=== PATIENT | male | born 1950 | race Caucasian/White ===

== ENCOUNTER 2019-05-10 15:30 | Observation (INO) | payer OTHER, MEDICARE ==
[2019-05-10] MEDS ORDERED: methylPREDNISolone 125 MG* 2 ML VIAL IV ONE ×2 (15:46→18:36)
[2019-05-10] MEDS ORDERED: Magnesium Sulfate 2 GM IV* 2 GM/50 ML BAG IV ONE (15:46)
[2019-05-10] MEDS ORDERED: Albuterol/Ipratropium NEB.SOL* Albuterol 2.5 MG/Ipratropium 0.5 MG 3 ML INH ONE ×3 (15:46→20:20)
[2019-05-10] MEDS ORDERED: predniSONE TAB* 20 MG PO ONE (16:03)
[2019-05-10 16:20] LABS: ABS Basophils 0.1 10^3/ul (0-0.2); ABS Eosinophils 0.4 10^3/ul (0-0.6); ABS Monocytes 0.7 10^3/ul (0-0.8); ABS Neutrophils 7.8 10^3/ul (1.5-7.7); Eosinophil % 3.4 %; Hematocrit 48 % (42-52); Hemoglobin 16.3 g/dL (14.0-18.0); Lymphocyte % 18.5 %; Mean Corpuscular HGB Conc 34 g/dL (31-36); Mean Corpuscular Hemoglobin 31 pg (27-31); Mean Corpuscular Volume 92 fL (80-94); Mean Platelet Volume 7.9 fL (7.4-10.4); Platelet Count 312 10^3/uL (150-450); Red Blood Count 5.22 10^6 /uL (4.18-5.48); Red Cell Distribution Width 15 % (10-15)
[2019-05-10 16:37] LABS: ALT 22 U/L (7-52); AST 26 U/L (13-39); Albumin 4.8 g/dL (3.2-5.2); Albumin/Globulin Ratio 1.6 (1-3); Alkaline Phosphatase 77 U/L (34-104); Anion Gap 10 mmol/L (2-11); Blood Urea Nitrogen 19 mg/dL (6-24); C Reactive Protein < 1.00 mg/L (<8.01); CO2 Carbon Dioxide 26 mmol/L (22-32); Calcium 9.9 mg/dL (8.6-10.3); Chloride 98 mmol/L (101-111); EGFR African American 78.9 (>60); EGFR Non-African American 65.2 (>60); Glucose 112 mg/dL (70-100); Magnesium 1.9 mg/dL (1.9-2.7); Sodium 134 mmol/L (135-145); Total Protein 7.8 g/dL (6.4-8.9); Troponin I 0.03 ng/mL (<0.04)
--- NOTE | 2019-05-10 16:38 | ED ---
Shortness of Breath - HPI Summary HPI Summary: 68-year-old male presents with shortness breath for the past week. He states that he has been wheezing more and more. He states that using an inhaler and almost ran out of it this week. He admits to cough and shortness breath. No chest pain. No abdominal pain. No nausea vomiting. No fevers. No sinus congestion. He states that his asthma has never been this bad. Does smoke. no one around him is sick. states he is allergic to cats and has a cat and started the heat this week so things the dander started his asthma. - History of Current Complaint Chief Complaint: EDShortnessOfBreath Time Seen by Provider: 05/10/19 15:43 - Allergy/Home Medications Allergies/Adverse Reactions: Allergies Allergy/AdvReac Type Severity Reaction Status Date / Time No Known Allergies Allergy Verified 08/29/12 08:10 Home Medications: Home Medications Albuterol HFA INHALER* [Ventolin HFA Inhaler*] 2 puff INH Q6H PRN 05/10/19 [ History Confirmed 05/10/19] PMH/Surg Hx/FS Hx/Imm Hx Endocrine/Hematology History: Denies: Hx Anticoagulant Therapy Cardiovascular History: Denies: Other Cardiovascular Problems/Disorders Respiratory History: Reports: Hx Asthma Denies: Hx Chronic Obstructive Pulmonary Disease (COPD) Sensory History: Reports: Hx Cataracts, Hx Contacts or Glasses - GLASSES Denies: Hx Hearing Aid Opthamlomology History: Reports: Hx Cataracts, Hx Contacts or Glasses - GLASSES Neurological History: Denies: Other Neuro Impairments/Disorders - Surgical History Surgery Procedure, Year, and Place: 06/2011, CATARACT RIGHT EYE AND. 07/2110, DETACHED RIGHT EYE, [place]. 08/2010, [facility] Hx Anesthesia Reactions: No - Immunization History Immunizations Up to Date: Unable to Obtain/Confirm Infectious Disease History: No Infectious Disease History: Denies: Traveled Outside the [place] in Last 30 Days - Family History Known Family History: Positive: Non-Contributory - Social History Alcohol Use: None Substance Use Type: Reports: Marijuana Substance Use Comment - Amount & Last Used: occasional Smoking Status (MU): Heavy Every Day Tobacco Smoker Review of Systems Negative: Fever Negative: Chest Pain Positive: Shortness Of Breath, Cough Negative: Abdominal Pain All Other Systems Reviewed And Are Negative: Yes Physical Exam Triage Information Reviewed: Yes Vital Signs On Initial Exam: Initial Vitals Temp Pulse Resp BP Pulse Ox 97.5 F 93 28 190/111 92 05/10/19 15:31 05/10/19 15:31 05/10/19 15:31 05/10/19 15:31 05/10/19 15:31 Vital Signs Reviewed: Yes Appearance: Positive: Well-Appearing Skin: Positive: Warm, Dry Head/Face: Positive: Normal Head/Face Inspection Eyes: Positive: Normal, EOMI, TAMI, Conjunctiva Clear ENT: Positive: Pharynx normal Respiratory/Lung Sounds: Positive: Breath Sounds Present, Wheezes Cardiovascular: Positive: Normal, RRR Abdomen Description: Positive: Nontender, Soft Bowel Sounds: Positive: Present Musculoskeletal: Positive: Normal Neurological: Positive: Normal Psychiatric: Positive: Normal Procedures - Sedation Patient Received Moderate/Deep Sedation with Procedure: No Diagnostics - Vital Signs Vital Signs Temp Pulse Resp BP Pulse Ox 05/10/19 16:10 90 19 95 05/10/19 15:31 97.5 F 93 28 190/111 92 - Laboratory Lab Results: Lab Results 05/10/19 05/10/19 Range/Units 16:06 16:06 WBC 11.0 H (3.5-10.8) 10^3/uL RBC 5.22 (4.18-5.48) 10^6 /uL Hgb 16.3 (14.0-18.0) g/dL Hct 48 (42-52) % MCV 92 (80-94) fL MCH 31 (27-31) pg MCHC 34 (31-36) g/dL RDW 15 (10-15) % Plt Count 312 (150-450) 10^3/uL MPV 7.9 (7.4-10.4) fL Neut % (Auto) 70.8 % Lymph % (Auto) 18.5 % [place] % (Auto) 6.2 % Eos % (Auto) 3.4 % Baso % (Auto) 1.1 % Absolute Neuts (auto) 7.8 H (1.5-7.7) 10^3/ul Absolute Lymphs (auto) 2.0 (1.0-4.8) 10^3/ul Absolute Monos (auto) 0.7 (0-0.8) 10^3/ul Absolute Eos (auto) 0.4 (0-0.6) 10^3/ul Absolute Basos (auto) 0.1 (0-0.2) 10^3/ul Absolute Nucleated RBC 0.0 10^3/ul Nucleated RBC % 0.0 Sodium 134 L (135-145) mmol/L Potassium 4.0 (3.5-5.0) mmol/L Chloride 98 L (101-111) mmol/L Carbon Dioxide 26 (22-32) mmol/L Anion Gap 10 (2-11) mmol/L BUN 19 (6-24) mg/dL Creatinine 1.12 (0.67-1.17) mg/dL Est GFR ( Amer) 78.9 (>60) Est GFR (Non-Af Amer) 65.2 (>60) BUN/Creatinine Ratio 17.0 (8-20) Glucose 112 H (70-100) mg/dL Calcium 9.9 (8.6-10.3) mg/dL Magnesium 1.9 (1.9-2.7) mg/dL Total Bilirubin 0.80 (0.2-1.0) mg/dL AST 26 (13-39) U/L ALT 22 (7-52) U/L Alkaline Phosphatase 77 (34-104) U/L Troponin I 0.03 (<0.04) ng/mL C-Reactive Protein < 1.00 (<8.01) mg/L Total Protein 7.8 (6.4-8.9) g/dL Albumin 4.8 (3.2-5.2) g/dL Globulin 3.0 (2-4) g/dL Albumin/Globulin Ratio 1.6 (1-3) Result Diagrams: 05/10/19 16:06 05/10/19 16:06 Lab Statement: Any lab studies that have been ordered have been reviewed, and results considered in the medical decision making process. - Radiology chest Radiology Interpretation Completed By: Radiologist Summary of Radiographic Findings: IMPRESSION: No active cardiopulmonary disease is noted. - EKG No standard instances Cardiac Rate: NL EKG Rhythm: Sinus Rhythm Summary of EKG Findings: sinus rhythm Re-Evaluation - Re-Evaluation First Eval Re-Evaluation Time: 16:53 Change: Improved Comment: still wheezing, does not want an IV still, will try continous neb Second Eval Comment: convinced to do IV Third Eval Re-Evaluation Time: 19:54 Change: Improved Comment: still wheezing, wants to go home, will do one more breathing treatment Fourth Eval Re-Evaluation Time: 20:42 Comment: patient attempted to ambulate and was unable to do so Course/Dx - Course Course Of Treatment: 68-year-old male presents with shortness breath for the past week. He states that he has been wheezing more and more. He states that using an inhaler and almost ran out of it this week. He admits to cough and shortness breath. No chest pain. No abdominal pain. No nausea vomiting. No fevers. No sinus congestion. He states that his asthma has never been this bad. Does smoke. On exam diffuse wheezing noted. Chest x-ray normal. White blood count normal. CRP normal. BNP and troponin normal. EKG shows sinus rhythm. Gave breathing treatment with minimal improvement. Patient initially declined IV so gave oral steroids with no improvement. He then finally agreed to IV and gave mag and solu medol with some improvements continues to wheeze and require oxygen. Patient states he does not want to be admitted. Advised that should be as patient continues to wheeze. patient was attempted to ambulate and was unable to do so. discussed case with dr palomo who agrees to admit. - Diagnoses Differential Diagnosis/HQI/PQRI: Positive: Asthma, CHF, Pneumonia Provider Diagnoses: Asthma, Shortness of breath - Critical Care Time Critical Care Time: 30-74 min - 50 mins Discharge ED - Sign-Out/Discharge Documenting (check all that apply): Patient Departure - Discharge Plan Condition: Stable Disposition: ADMITTED TO [facility] - Billing Disposition and Condition Condition: STABLE Disposition: Admitted to [facility]
[2019-05-10] MEDS ORDERED: Albuterol 0.5% CONC NEB.SOL* 5 MG/ML 20 ml BOT INH ONE ×2 (16:54→17:44)
[2019-05-10] MEDS ORDERED: Magnesium Sulfate 2 GM IV* 2 GM/50 ML BAG IVPB ONE (18:36)
[2019-05-10] MEDS ORDERED: Albuterol 2.5 MG/3 ML NEB.SOL* (0.083%) INH ONE (19:54)
[2019-05-10] MEDS ORDERED: Albuterol/Ipratropium NEB.SOL* Albuterol 2.5 MG/Ipratropium 0.5 MG 3 ML INH PRN (23:25)
[2019-05-10] MEDS ORDERED: NS 0.9% 1000 ML** 1,000 ML IV SCH (23:30)
[2019-05-10] MEDS ORDERED: Azithromycin 500 mg/250 ml NS 500 MG/250 ML BAG IVPB SCH (23:45)
--- NOTE | 2019-05-11 01:16 | HP ---
CC: Dr. Toro Cade * ADMISSION HISTORY AND PHYSICAL: DATE OF ADMISSION: 05/10/19 PRIMARY CARE PHYSICIAN: Toro Cade MD CHIEF COMPLAINT: Shortness of breath. HISTORY OF PRESENT ILLNESS: This is a 68-year-old gentleman with no significant past medical history, followed up by Dr. Toro Cade about 4 months ago for blood work and was told that he does not have any medical problems including diabetes, hypertension, dyslipidemia. He was noted to have some previous history of obstructive pulmonary disease and was given some p.r.n. albuterol ever since he got a cat, which he states he is allergic to and normally he uses his albuterol as needed; however, for the last 1 week, he has been having severe shortness of breath and more and more wheezing with the albuterol not being sufficient to cure. He also been having cough, which is productive of clear, medium thickness of sputum. No fever or chills. 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 That along with the fact that he is allergic to cat might have triggered his symptoms. He otherwise denies any other abdominal pain, nausea, vomiting, diarrhea, any fever, chills, any numbness, tingling, weakness, any vision disturbance. PAST MEDICAL HISTORY: He does have a history of alcohol abuse, has been abstinent for many years, especially since 1982, but has had a few relapses in between, last relapse was roughly 7 years ago. He also has a history of prostate problem but only takes herbal medications, does not want to take any chemicals. History of chronic smoking with obstructive lung disease, which he attributes to allergies to his cat. PAST SURGICAL HISTORY: He has had multiple surgeries in both eyes including cataract extraction with subsequent repair of detached retina and removal of the lens, which had flipped and reinsertion of a new lens on the right eye and since then, he has had oddly shaped pupil, especially on his right eye, which is a different size than his left eye. He has also had double inguinal hernia repairs in 2010. HOME MEDICATIONS: The patient's only home medication is Ventolin 2 puffs by inhalation every 6 hours as needed. ALLERGIES: No known drug allergies, but the patient does state that he is allergic to his cat. FAMILY HISTORY: The patient was adopted but he did track down his parents and states that both his parents lived to be very long, but otherwise he does not know any significant medical problems that they might have had. 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 He is an active smoker, he smokes about a half a pack per day and states that he has quit smoking as of today and as mentioned, he has a previous history of alcoholism, has been abstinent with since 1982 with a few relapses in between, last relapse was 7 years ago. He lives with his son, Lyndon, , who is his healthcare proxy and he is otherwise full code. REVIEW OF SYSTEMS: A 14-point review of systems did not reveal any new information other than the ones in the HPI. PHYSICAL EXAMINATION GENERAL: The patient is awake, alert, and oriented x3, did not appear to be in any acute respiratory distress. VITAL SIGNS: In the ER, temperature documented at 97.5, BP was 127/78, heart rate 102, respiration rate 18, saturating 96% on 2 L nasal cannula. HEAD AND NECK: Atraumatic, normocephalic. Bilateral pupils are reactive, but unequal as mentioned. Neck: Supple. No jugular venous distention. LUNGS: The patient had bilateral diffuse wheezing. HEART: S1, S2. Irregular, tachycardia. ABDOMEN: Soft, nontender, nondistended. EXTREMITIES: No cyanosis, clubbing, or edema. DIAGNOSTIC STUDIES/LAB DATA: CBC shows minimally elevated white count of 11.0 , hemoglobin, hematocrit, and platelets were stable. Comprehensive metabolic panel shows some mild hyponatremia with sodium of 134, potassium, bicarb, BUN, and creatinine were all within normal limits. Lactic acid minimally elevated at 2.3. Glucose was noted to be 112. LFTs with normal limits. Troponin was 0.01. Chest x-ray, no active cardiopulmonary disease noted. EKG shows sinus rhythm at 87 beats per minute without any ST elevation. IMPRESSION: This is a 68-year-old gentleman with no significant past medical history other than smoking and alcohol abuse. He comes in with respiratory distress likely secondary to COPD exacerbation. ASSESSMENT AND PLAN: 1. Hypoxic respiratory failure secondary to chronic obstructive pulmonary disease exacerbation. We will start the patient on steroids, azithromycin, and DuoNeb both scheduled and p.r.n. along with continuous pulse oximetry monitoring. 2. Lactic acidosis likely secondary to dehydration. We will start the patient on gentle hydration and repeat lactic acid level in the morning. 3. DVT prophylaxis with sequential compression device. 4. Code status. Full code with sonLyndon being healthcare proxy. [id number]/[facility] #: [id number] NORM
[2019-05-11] MEDS: Albuterol/Ipratropium NEB.SOL* Albuterol 2.5 MG/Ipratropium 0.5 MG 3 ML INH SCH ×2 (02:21→08:08)
[2019-05-11 06:44] LABS: ABS Lymphocytes 1.1 10^3/ul (1.0-4.8); ABS Monocytes 0.5 10^3/ul (0-0.8); ABS Neutrophils 10.3 10^3/ul (1.5-7.7); Hematocrit 46 % (42-52); Hemoglobin 15.2 g/dL (14.0-18.0); Lymphocyte % 8.9 %; Mean Corpuscular HGB Conc 33 g/dL (31-36); Mean Corpuscular Hemoglobin 30 pg (27-31); Mean Corpuscular Volume 92 fL (80-94); Mean Platelet Volume 7.8 fL (7.4-10.4); Nucleated Red Blood Cells % 0.2; Platelet Count 296 10^3/uL (150-450); Red Blood Count 5.01 10^6 /uL (4.18-5.48); Red Cell Distribution Width 15 % (10-15)
[2019-05-11 07:09] LABS: BUN/Creatinine Ratio 20.8 (8-20); Calcium 9.5 mg/dL (8.6-10.3); EGFR African American 84.1 (>60); EGFR Non-African American 69.5 (>60); Potassium 4.9 mmol/L (3.5-5.0)
[2019-05-11] MEDS ORDERED: methylPREDNISolone SOD 40 MG* 1 ML VIAL IV SCH (07:30)
[2019-05-11] MEDS ORDERED: Acetaminophen TAB* 325 MG PO PRN (09:00)
[2019-05-11] MEDS ORDERED: Nicotine* 2MG (FRUIT FLAVOR) GUM PO PRN (10:16)
--- NOTE | 2019-05-11 10:22 | PN ---
Subjective Date of Service: 05/11/19 Interval History: Patient states that his breathing feels more comfortable at rest. Nursing notes that he was quite dyspneic with minimal exertion of using bedside urinal. Patient requests to go home today. Denies chest pain, fever/chills, abd pain. Tells me he has a "very small" productive cough. Objective Active Medications: Acetaminophen (Tylenol Tab*) 650 mg PO Q6H PRN PRN Reason: PAIN - MILD Albuterol/Ipratropium (Duoneb (Albuterol 2.5 Mg/Ipratropium 0.5 Mg)) 1 neb INH [id number] AWAKE PRN PRN Reason: sob/wheexing Azithromycin (Zithromax 500 Mg/250 Ml) 500 mg in 250 mls @ 250 mls/hr IVPB 2100 [facility] Last Admin: 05/11/19 01:10 Dose: 250 mls/hr Methylprednisolone Sodium Succinate (Solu-Medrol 40 Mg) 40 mg IV Q12H [facility] Last Admin: 05/11/19 07:49 Dose: 40 mg Nicotine (Nicotine Patch 21 Mg/24 Hr*) 1 patch TRANSDERM DAILY@0800 [facility] Pharmacy Profile Note (Nicotine Patch Removal Note*) 1 note FOLLOW UP 2099 [facility] Vital Signs - 8 hr 05/11/19 05/11/19 05/11/19 02:33 03:30 07:36 Temperature 98.1 F 97.9 F Pulse Rate 100 107 104 Respiratory 15 24 19 Rate Blood Pressure 112/62 138/79 (mmHg) O2 Sat by Pulse 96 96 97 Oximetry 05/11/19 08:08 Temperature Pulse Rate 109 Respiratory 20 Rate Blood Pressure (mmHg) O2 Sat by Pulse 93 Oximetry Oxygen Devices in Use Now: Nasal Cannula Appearance: Thin, elderly white male, laying upright in bed, appearing in NAD Eyes: No Scleral Icterus, - - PERRL Ears/Nose/Mouth/Throat: Mucous Membranes Moist Neck: - - neck supple Respiratory: Symmetrical Chest Expansion and Respiratory Effort, - - expiratory wheezing in bilateral middle lung marroquin, rhonchi in bilateral lung bases Cardiovascular: NL Sounds; No Murmurs; No JVD, RRR Abdominal: - - abd soft, nontender, nondistended Extremities: No Edema, No Clubbing, Cyanosis Skin: No Rash or Ulcers Neurological: Alert and Oriented x 3, NL Muscle Strength and Tone Result Diagrams: 05/11/19 06:33 05/11/19 06:33 Additional Lab and Data: Lab Results 05/10/19 05/10/19 Range/Units 16:06 16:06 WBC 11.0 H (3.5-10.8) 10^3/uL RBC 5.22 (4.18-5.48) 10^6 /uL Hgb 16.3 (14.0-18.0) g/dL Hct 48 (42-52) % MCV 92 (80-94) fL MCH 31 (27-31) pg MCHC 34 (31-36) g/dL RDW 15 (10-15) % Plt Count 312 (150-450) 10^3/uL MPV 7.9 (7.4-10.4) fL Neut % (Auto) 70.8 % Lymph % (Auto) 18.5 % [place] % (Auto) 6.2 % Eos % (Auto) 3.4 % Baso % (Auto) 1.1 % Absolute Neuts (auto) 7.8 H (1.5-7.7) 10^3/ul Absolute Lymphs (auto) 2.0 (1.0-4.8) 10^3/ul Absolute Monos (auto) 0.7 (0-0.8) 10^3/ul Absolute Eos (auto) 0.4 (0-0.6) 10^3/ul Absolute Basos (auto) 0.1 (0-0.2) 10^3/ul Absolute Nucleated RBC 0.0 10^3/ul Nucleated RBC % 0.0 Sodium 134 L (135-145) mmol/L Potassium 4.0 (3.5-5.0) mmol/L Chloride 98 L (101-111) mmol/L Carbon Dioxide 26 (22-32) mmol/L Anion Gap 10 (2-11) mmol/L BUN 19 (6-24) mg/dL Creatinine 1.12 (0.67-1.17) mg/dL Est GFR ( Amer) 78.9 (>60) Est GFR (Non-Af Amer) 65.2 (>60) BUN/Creatinine Ratio 17.0 (8-20) Glucose 112 H (70-100) mg/dL Calcium 9.9 (8.6-10.3) mg/dL Magnesium 1.9 (1.9-2.7) mg/dL Total Bilirubin 0.80 (0.2-1.0) mg/dL AST 26 (13-39) U/L ALT 22 (7-52) U/L Alkaline Phosphatase 77 (34-104) U/L Troponin I 0.03 (<0.04) ng/mL C-Reactive Protein < 1.00 (<8.01) mg/L Total Protein 7.8 (6.4-8.9) g/dL Albumin 4.8 (3.2-5.2) g/dL Globulin 3.0 (2-4) g/dL Albumin/Globulin Ratio 1.6 (1-3) Assess/Plan/Problems-Billing Assessment: 68 yo white male with PMHx prior alcohol use, COPD, and a R irregular pupil postoperatively presents with shortness of breath. - Patient Problems (1) Acute respiratory failure with hypoxia Current Visit: Yes Status: Acute Code(s): J96.01 - ACUTE RESPIRATORY FAILURE WITH HYPOXIA SNOMED Code(s): 20982699 Comment: -2/2 COPD exacerbation, possibly triggered by environmental triggers -patient only has rescue albuterol inhaler at home -dyspneic with minimal exertion -maintaining good saturations on 2L oxgyen at rest -changing solumedrol to 50 mg prednisone -continue scheduled nebulizers, azithromycin -pt will benefit from LAMA on discharge (2) Lactic acidosis Current Visit: Yes Status: Acute Code(s): E87.2 - ACIDOSIS SNOMED Code(s) : 25395087 Comment: -likely 2/2 hypoxia -now resolved -d/c IVF (3) Tobacco use Current Visit: Yes Status: Acute Code(s): Z72.0 - TOBACCO USE SNOMED Code( s): 857508563 Comment: -ordered nicotine patch and prn nicotine gum (4) DVT prophylaxis Current Visit: Yes Status: Acute Code(s): Z29.9 - ENCOUNTER FOR PROPHYLACTIC MEASURES, UNSPECIFIED SNOMED Code(s): 480507284 (5) Full code status Current Visit: Yes Status: Acute Code(s): Z78.9 - OTHER SPECIFIED HEALTH STATUS SNOMED Code(s): 210784326
[2019-05-11 14:44] VITALS: BP 169/86
[2019-05-11] MEDS ORDERED: Nicotine Patch Removal NOTE FOLLOW UP SCH (21:00)
--- NOTE | 2019-05-11 22:22 | DS ---
DISCHARGE SUMMARY: DATE OF ADMISSION: 05/10/19 DATE OF DISCHARGE: Leaving against medical advice on 05/11/19. PROVIDER: ERICK Harris. ATTENDING PHYSICIAN WHILE IN THE HOSPITAL: Dr. Jessika Vera * (dictated by ERICK Harris). PRIMARY DIAGNOSIS: Chronic obstructive pulmonary disease exacerbation. SECONDARY DIAGNOSES: 1. Prior history of alcohol abuse. 2. Prior history of chronic obstructive pulmonary disease, only rescue inhaler used at home. 3. Tobacco use. HISTORY OF PRESENT ILLNESS/HOSPITAL COURSE: The patient is a 68-year-old white male with past medical history significant for COPD and prior history of alcohol use who presented to the emergency department on 05/10/19 for shortness of breath. He has been having ongoing worsening of shortness of breath over a week and did not have any resolution with rescue albuterol use. Additionally, he has been having a productive cough. For further details, please see the admitting history and physical written by Dr. Huy Chopra. On the following day , the patient was evaluated and his lung exam appeared somewhat improved based on the description from admission; however, still was wheezing and rhonchorous. The patient was reportedly dyspneic with minimal exertion per nursing staff. The patient ambulated without oxygen on the unit and oxygen saturations were as low as 83%; however, the oxygen saturations were above 90% at rest on room air. When told it was recommended he stay an additional night in the hospital, the paitnet said he wanted to leave. He did appear clinically sober, free from distracting injury, and appeared to have the insight and judgment to have the capacity to make decisions. The patient understood that he was leaving the hospital against medical advice. I told the patient that it was unsafe to go home while he was still requiring oxygen with exertion considering that he normally does not require any oxygen. He still felt that it was better if he went home. I have told the patient the risks of leaving the hospital including worsening shortness of breath, worsening medical state, respiratory distress, and possible . The patient understood these risks and still wished to leave the hospital against medical advice. I did offer staying in the hospital for further evaluation and observation to ensure no further worsening of his respiratory status, and the patient declined and wanted to leave. The patient is not willing to stay to be observed in the hospital for an additional day. He is refusing any further care and is leaving against medical advice. Case management did assist the patient in leaving the hospital with oxygen tank and medical equipment providing oxygen concentrator at home. PHYSICAL EXAM WHILE IN HOSPITAL: Please see physical exam from progress note from today's date. DISCHARGE PLAN: Diet: Regular unrestricted diet. Activity: The patient was advised to limit his activity as he is still dyspneic and hypoxic with exertion. The patient is advised to follow up with his primary care provider. He was advised to please return to the hospital if he is experiencing worsening shortness of breath, especially if not resolving with albuterol use or oxygen use, cyanosis, chest pain, fever or chills, loss of consciousness, or other concerning symptoms. I did advise the patient to begin azithromycin and prednisone tomorrow and to continue for an additional 3 days until completed. I advised the patient that he needs to have formal outpatient PFTs to confirm a diagnosis of COPD. I additionally advised the patient request education regarding Spiriva use in the pharmacy when he picks it up as this is a new medication to him. We discussed smoking cessation during his hospital stay and he declined prescriptions for nicotine replacement therapy. DISCHARGE MEDICATIONS: Continued Home Medications: 1. Albuterol HFA inhaler 2 puffs inhaled q.6 hours p.r.n. for shortness of breath/wheezing. New Discharge Medications: 2. Azithromycin 250 mg x3 doses. 3. Prednisone 50 mg p.o. daily x3 doses. 4. Spiriva 2 puffs inhaled daily. CONDITION ON DISCHARGE: Guarded. DISPOSITION: Against medical advice to home. TIME SPENT: Approximately 40 minutes were spent on this discharge, approximately half that time was spent at the bedside discussing the risks of leaving against medical advice to the patient, the benefits of staying in the hospital, and ultimately stressing his return precautions to the hospital as well as evaluating the patient. ERICK HARRIS [id number]/[facility] #: [id number] MTDD
[2019-05-12] MEDS ORDERED: Nicotine PATCH 21 MG/24 HR* PATCH TRANSDERM SCH (08:00)
[2019-05-12] MEDS ORDERED: predniSONE TAB* 50 MG PO SCH (09:00)
== END 2019-05-11 15:00 | disposition left against medical advice (07) ==
LOC: ED 15:30 → INTOOBSV 23:25 → MED 23:25
PROVIDERS: ADMIT Internal Medicine; ATTEND Internal Medicine
DX: J44.1 Chronic obstructive pulmonary disease with (acute) exacerbation (principal); R06.02 Shortness of breath; F17.210 Nicotine dependence, cigarettes, uncomplicated; Z79.899 Other long term (current) drug therapy; R05 Cough
CPT/HCPCS: 36415; 71046; 80048; 80053; 83605; 83735; 83880; 84484; 85025; 86140; 93005; 94640; 96374; 96375; 96376; 99285; A9270-GY; G0378; J0456; J2920; J2930; J3475; J7512; J7611